=== PATIENT | female | born 1985 | race Caucasian/White ===

== ENCOUNTER 2020-12-07 03:00 | Inpatient (IN) | payer OTHER ==
[2020-12-07 04:08] LABS: BASO % 0.8 % (0-2.0); HEMATOCRIT 37.6 % (32.4-45.2); HEMOGLOBIN 12.5 GM/dL (10.7-15.3); LYMPH % 27.3 % (8-40); MCH 28.2 pg (25.7-33.7); MCHC 33.3 g/dl (32.0-36.0); MEAN CELL VOLUME 84.6 fl (80-96); MEAN PLT VOLUME 9.3 fl (7.5-11.1); MONO % 7.4 % (3.8-10.2); NEUT % 63.5 % (42.8-82.8); PLATELET COUNT 210 K/MM3 (134-434); RBC 4.44 M/mm3 (3.60-5.2); RDW 15.9 % (11.6-15.6); WHITE BLOOD COUNT 11.9 K/mm3 (4.0-10.0)
[2020-12-07] MEDS ORDERED: OXYTOCIN 20 UNITS in 0.9% NS 20 UNIT/1,000 ML INFUS.BAG IV ONE ×2 (04:16→08:01)
[2020-12-07 04:26] LABS: POTASSIUM 3.9 mmol/L (3.5-5.1)
[2020-12-07 04:28] LABS: BLOOD UREA NITROGEN 7.5 mg/dL (7-18)
[2020-12-07 04:31] LABS: CREATININE 0.6 mg/dL (0.55-1.3)
[2020-12-07] MEDS ORDERED: BENZOCAINE 20% 57 GM BOTTLE TP PRN (05:04)
[2020-12-07] MEDS ORDERED: WITCH HAZEL 50% (TUCKS) 40 PAD/JAR PAD TP PRN (05:04)
[2020-12-07] MEDS ORDERED: BENZOCAINE 28 GM HEMORRHOIDAL OINTMENT TP PRN (05:04)
[2020-12-07] MEDS ORDERED: METHYLERGONOVINE MALEATE 0.2 MG/1 ML AMP IM PRN (05:04)
[2020-12-07] MEDS ORDERED: BISACODYL 10 MG SUPP.RECT RC PRN (05:04)
[2020-12-07] MEDS ORDERED: AMPICILLIN - 2 GM in SODIUM CHLORIDE 100 ML IVPB ONE (05:05)
[2020-12-07 05:11] LABS: PROTHROMBIN TIME (PATIENT) 12.3 SEC (9.7-13.0)
[2020-12-07 05:13] LABS: ACTIVATED PTT 25.9 SECONDS (25.2-36.5)
[2020-12-07] MEDS ORDERED: ELECTROLYTE-148 SOLN 1,000 ML IV SCH (05:15)
[2020-12-07] MEDS ORDERED: OXYTOCIN 20 UNITS in 0.9% NS 20 UNIT/1,000 ML INFUS.BAG IV SCH (05:15)
[2020-12-07 05:21] LABS: HIV INTERPRETATION NEGATIVE (NEGATIVE)
[2020-12-07] MEDS: IBUPROFEN 600 MG TABLET (FP) PO PRN ×3 (05:30→23:49)
[2020-12-07] MEDS: ACETAMINOPHEN 325 MG TABLET (FP) PO PRN ×3 (05:30→23:48)
[2020-12-07] MEDS ORDERED: IBUPROFEN 600 MG TABLET (FP) PO ONE ×2 (05:45→09:26)
[2020-12-07] MEDS ORDERED: ACETAMINOPHEN 325 MG TABLET (FP) ONE ×2 (05:45→09:26)
[2020-12-07 06:18] VITALS: BMI 36.6
[2020-12-07] MEDS ORDERED: PRENATAL VITAMINS W/ FOLIC ACID TABLET (FP) PO ONE (11:25)
[2020-12-08] MEDS: IBUPROFEN 600 MG TABLET (FP) PO PRN ×2 (03:16→09:51)
[2020-12-08] MEDS: ACETAMINOPHEN 325 MG TABLET (FP) PO PRN ×2 (03:16→09:51)
[2020-12-08 09:06] LABS: BASO % 0.6 % (0-2.0); EOS % 2.1 % (0-4.5); HEMATOCRIT 34.4 % (32.4-45.2); HEMOGLOBIN 11.7 GM/dL (10.7-15.3); LYMPH % 28.7 % (8-40); MCH 28.5 pg (25.7-33.7); MCHC 33.9 g/dl (32.0-36.0); MEAN CELL VOLUME 84.2 fl (80-96); MEAN PLT VOLUME 8.2 fl (7.5-11.1); MONO % 6.1 % (3.8-10.2); NEUT % 62.5 % (42.8-82.8); PLATELET COUNT 185 K/MM3 (134-434); RBC 4.09 M/mm3 (3.60-5.2); RDW 16.2 % (11.6-15.6); WHITE BLOOD COUNT 10.5 K/mm3 (4.0-10.0)
[2020-12-08 10:08] VITALS: BP 126/82; PULSE 79; TEMP 98.4
[2020-12-08] MEDS ORDERED: SENNOSIDES/DOCUSATE COMBO (SENNA PLUS) TABLET (UD) PO PRN (22:00)
== END 2020-12-08 13:15 | disposition home or self-care (01) | DRG 560 ==
LOC: JDEL 03:00 → JLDR 03:01 → J3W 12:35
PROVIDERS: ADMIT Specialist; ATTEND Specialist
PROC: 10E0XZZ Delivery of Products of Conception, External Approach (ICD-10-PCS; principal; 2020-12-07)
PROC: 10907ZC Drainage of Amniotic Fluid, Therapeutic from Products of Conception, Via Natural or Artificial Opening (ICD-10-PCS; 2020-12-07)
DX: O70.0 First degree perineal laceration during delivery (principal); Z91.013 Allergy to seafood; Z3A.38 38 weeks gestation of pregnancy; Z37.0 Single live birth
CPT/HCPCS: 36415; 59409; 80048; 85025; 85610; 85730; 86780; 86850; 86900; 86901; 87389

== ENCOUNTER 2021-01-02 16:32 | Emergency (ER) | payer OTHER ==
[2021-01-02 16:51] VITALS: BP 127/79; PULSE 83; TEMP 98.2; BMI 33.7
== END 2021-01-02 17:43 | disposition home or self-care (01) ==
LOC: JERFT 16:32
DX: H00.014 Hordeolum externum left upper eyelid (principal)
CPT/HCPCS: 99283-25

== ENCOUNTER 2021-02-07 05:29 | Day surgery (SDC) | payer OTHER ==
[2021-02-06 11:42] VITALS: BMI 34.1
[2021-02-07] MEDS ORDERED: LIDOCAINE HCL/PF 2% SDV 5ML VIAL ONE (11:22)
[2021-02-07] MEDS ORDERED: PROPOFOL 20 ML ONE (11:22)
[2021-02-07] MEDS ORDERED: ROCURONIUM BROMIDE 50 MG/5 ML SYRINGE ONE (11:22)
[2021-02-07] MEDS ORDERED: MIDAZOLAM HCL 2 MG/2 ML SINGLE DOSE VIAL ONE (11:22)
[2021-02-07] MEDS ORDERED: SEVOFLURANE 250 ML BTL ONE (11:24)
[2021-02-07] MEDS ORDERED: ceFAZolin 2 GRAM PREMIX BAG IVPB ONE (12:10)
[2021-02-07] MEDS ORDERED: GLYCOPYRROLATE 0.2 MG/1 ML VIAL ONE (12:43)
[2021-02-07] MEDS ORDERED: NEOSTIGMINE METHYLSULFATE 0.5 MG/ML - 10 ML MDV ONE (12:43)
[2021-02-07] MEDS ORDERED: ACETAMINOPHEN 500 MG TABLET (FP) PO PRN (13:06)
[2021-02-07] MEDS ORDERED: ACETAMINOPHEN INJECTION 100 ML IVPB ONE (13:57)
[2021-02-07] MEDS ORDERED: oxyCODONE HCL 5 MG TABLET PO PRN (13:58)
[2021-02-07] MEDS ORDERED: ONDANSETRON 4 MG/2 ML VIAL IVPUSH PRN (13:58)
[2021-02-07] MEDS ORDERED: LACTATED RINGERS SOLUTION 1,000 ML IV SCH (14:00)
[2021-02-07 15:28] VITALS: TEMP 98
[2021-02-07 16:58] VITALS: BP 117/70; PULSE 80
== END 2021-02-07 17:10 | disposition home or self-care (01) ==
LOC: JASU-SURG 05:29
PROVIDERS: ATTEND Specialist
PROC: 0UB74ZZ Excision of Bilateral Fallopian Tubes, Percutaneous Endoscopic Approach (ICD-10-PCS; principal; 2021-02-07 10:00)
DX: Z30.2 Encounter for sterilization (principal)
CPT/HCPCS: 81025; 94760; J0131